=== PATIENT | female | born 1990 | race Caucasian/White ===

== ENCOUNTER 2017-06-25 10:33 | Emergency (ER) | payer OTHER ==
[~2017-06-25] VITALS: Ht 182.9 cm; Wt 104.8 kg
[~2017-06-25 10:33] MED LIST: FIORICET W/CODE1 CAP PO; NORCO1 TA2 PO
[2017-06-25 10:37] VITALS: Ht 182.9 cm; Wt 104.8 kg
[2017-06-25 11:43] VITALS: BP 118/73
== END 2017-06-25 11:43 | disposition home or self-care (01) ==
LOC: ED 10:33
DX: N39.0 Urinary tract infection, site not specified (principal); R03.0 Elevated blood-pressure reading, without diagnosis of hypertension; F17.200 Nicotine dependence, unspecified, uncomplicated; Z71.6 Tobacco abuse counseling
CPT/HCPCS: 99406; J1885

== ENCOUNTER 2018-05-18 22:04 | Emergency (ER) | payer OTHER ==
[~2018-05-18] VITALS: Ht 182.9 cm; Wt 111.1 kg
[2018-05-18 23:19] VITALS: BP 150/92; Ht 182.9 cm; Wt 111.1 kg
== END 2018-05-19 01:47 | disposition left against medical advice (07) ==
LOC: ED 22:04
DX: Z53.21 Procedure and treatment not carried out due to patient leaving prior to being seen by health care provider (principal)

== ENCOUNTER 2018-11-15 09:36 | Emergency (ER) | payer OTHER ==
[~2018-11-15] VITALS: Ht 182.9 cm; Wt 122.5 kg
[2018-11-15 09:41] VITALS: BP 134/57; Ht 182.9 cm; Wt 122.5 kg
== END 2018-11-15 10:37 | disposition left against medical advice (07) ==
LOC: ED 09:36
DX: Z53.21 Procedure and treatment not carried out due to patient leaving prior to being seen by health care provider (principal)